=== PATIENT | female | born 1960 | race Caucasian/White ===

== ENCOUNTER 2017-11-29 06:57 | Day surgery (SDC) | payer OTHER ==
[~2017-11-29] VITALS: Ht 157.5 cm; Wt 95.3 kg
[2017-11-29] MEDS ORDERED: MIDAZOLAM HCL 5 MG/5 ML VIAL ONE (08:08)
[2017-11-29] MEDS ORDERED: SIMETHICONE 40 MG/0.6 ML ML ONE (08:08)
[2017-11-29] MEDS ORDERED: MEPERIDINE HCL/PF 100 MG/ML AMP ONE (08:08)
[2017-11-29 12:49] VITALS: BP_SYST 110
== END 2017-11-29 10:00 | disposition home or self-care (01) ==
LOC: SDS 06:57
PROVIDERS: ATTEND Colon & Rectal Surgery
DX: K64.8 Other hemorrhoids (principal); E11.9 Type 2 diabetes mellitus without complications; I10 Essential (primary) hypertension; E66.9 Obesity, unspecified; Z86.010 Personal history of colon polyps; D64.9 Anemia, unspecified; E11.36 Type 2 diabetes mellitus with diabetic cataract; Z98.890 Other specified postprocedural states; Z68.38 Body mass index [BMI] 38.0-38.9, adult; Z79.84 Long term (current) use of oral hypoglycemic drugs; Z79.899 Other long term (current) drug therapy
CPT/HCPCS: 45378; 82962; J2175; J2250; J7030

== ENCOUNTER 2018-08-01 05:40 | Day surgery (SDC) | payer OTHER ==
[~2018-08-01] VITALS: Ht 157.5 cm; Wt 93.0 kg
[2018-08-01] MEDS ORDERED: CEFAZOLIN SOD 1 GM in D5W 50 ML IV ONE (07:00)
[2018-08-01] MEDS ORDERED: PROPOFOL 200MG/ 20ML VIAL (DIPRIVAN) IV ONE (07:30)
[2018-08-01] MEDS ORDERED: KETOROLAC TROMETHAMINE 30 MG VIAL IVP ONE (07:30)
[2018-08-01] MEDS ORDERED: GLYCOPYRROLATE 0.2 MG/ML VIAL IJ ONE (07:30)
[2018-08-01] MEDS ORDERED: MIDAZOLAM HCL 5 MG/5 ML VIAL IVP ONE (07:30)
[2018-08-01] MEDS ORDERED: NS 1000 ML IV.SOLN IV ONE (07:30)
[2018-08-01] MEDS ORDERED: fentaNYL CITRATE/PF 100 MCG/2 ML AMP IVP ONE (07:30)
[2018-08-01] MEDS ORDERED: PHENYLEPHRINE HCL 10 MG/ML VIAL (NEOSYNEPHRINE) IV ONE (07:30)
[2018-08-01] MEDS ORDERED: WATER FOR IRRIGATION,STERILE 1,000 ML IRRIG.SOLN IR ONE (07:30)
[2018-08-01] MEDS ORDERED: ROCURONIUM BROMIDE 10 MG/ML (ZEMURON) IV ONE (07:30)
[2018-08-01] MEDS ORDERED: BUPIVACAINE /EPINEPHRINE/PF 0.25% 30 ML VIAL INJ ONE (07:30)
[2018-08-01] MEDS ORDERED: SEVOFLURANE 15 MIN GAS INH ONE (07:30)
[2018-08-01] MEDS ORDERED: KETOROLAC TROMETHAMINE 30 MG VIAL IVP PRN (08:00)
[2018-08-01] MEDS ORDERED: ONDANSETRON HCL 4 MG/2 ML VIAL IVP PRN (08:00)
[2018-08-01] MEDS ORDERED: fentaNYL CITRATE/PF 100 MCG/2 ML AMP IVP PRN ×2 (08:00)
[2018-08-01] MEDS ORDERED: IOHEXOL 50 ML IV ONE (08:06)
[2018-08-01] MEDS ORDERED: D5/0.45 NS 1,000 ML IV SCH (08:54)
[2018-08-01] MEDS ORDERED: HYDROcodone/ACETAMIN 5-325 MG TAB (NORCO/ VICODIN) PO PRN ×2 (09:00)
[2018-08-01] MEDS ORDERED: HYDROmorphone 1 MG INJ. 1 MG/ML AMPUL IVP PRN (09:00)
[2018-08-01 09:57] VITALS: BP_SYST 117
[2018-08-01] MEDS ORDERED: HYDROcodone/ACETAMIN 5-325 MG TAB (NORCO/ VICODIN) ONE (09:59)
== END 2018-08-01 12:10 | disposition home or self-care (01) ==
LOC: SMU 05:40 → SDS 05:40
PROVIDERS: ATTEND Colon & Rectal Surgery
DX: K80.20 Calculus of gallbladder without cholecystitis without obstruction (principal); I10 Essential (primary) hypertension; E11.9 Type 2 diabetes mellitus without complications; H10.45 Other chronic allergic conjunctivitis; E05.90 Thyrotoxicosis, unspecified without thyrotoxic crisis or storm; Z68.32 Body mass index [BMI] 32.0-32.9, adult; Z79.899 Other long term (current) drug therapy
CPT/HCPCS: 47563; 74300; 88304; C1727; C1758; J0690; J1885; J2250; J2370; J2704; J3010; J3490 ×2; J7030; J7060; J7120; Q9967; 76000